=== PATIENT | male | born 1990 | race Caucasian/White ===

== ENCOUNTER 2018-02-09 19:02 | Inpatient (IN) ==
[2018-02-09] MEDS ORDERED: *HR* LORazepam 1 MG TABLET PO ONE (19:08)
--- NOTE | 2018-02-09 19:23 | Emergency Department Note ---
Disposition Clinical Impression: Substance abuse Disposition: Still a Patient General Adult HPI - General Stated complaint: SI Time Seen by Provider: 02/09/18 19:08 Nursing Notes Reviewed: Yes Vital Signs Reviewed: Yes - History of Present Illness HPI Narrative: Attestation note: Patient was seen with the emergency medicine resident/nurse practitioner/physician music library assistant/transitional resident/medical student: Dr. TJ MINOR I have personally performed a face to face evaluation on this patient. I have reviewed and agree with history and physical examination patient management and disposition. Briefly the salient points of the case are as follows: 28-year-old male by EMS for hallucinations and suicidal ideations. Patient has history of methamphetamine abuse by intravenous route. He stated was several days ago he appears to be agitated intermittently vacillating between admitting to suicidal ideations and then denying them since he seeing things. He seems agitated and animated. Family called in with concerns of him being flight risk and that he needs mental health evaluation. He does appear to have appears to be fresh track sofia on his right upper extremity. He is tachycardic. Patient will get an EKG patient will undergo medical clearance is physical examination is otherwise benign. Patient is can be given 2 mg of oral Ativan and then be evaluated by mental health service for disposition. Disposition pending - Related Data Previous Rx's Medication Instructions Recorded FLUoxetine HCl [Fluoxetine HCl] 10 mg PO DAILY #10 capsule 02/06/18 Ibuprofen 800 mg PO TID PRN #30 tablet 02/06/18 LORazepam [Ativan] 1 mg PO QID PRN 10 Days #40 tablet 02/06/18 Quetiapine Fumarate [Seroquel] 25 mg PO BID #20 tablet 02/06/18 traZODone [TraZODone] 50 mg PO HS #10 tablet 02/06/18 Allergies Allergy/AdvReac Type Severity Reaction Status Date / Time No Known Allergies Allergy Verified 08/24/17 15:54 Past Medical History - Past Medical History Medical history: Reports: no medical history Psychiatric history: Reports: anxiety, depression - Social History Smoking Status: Current every day smoker Smokeless Tobacco Status: No Alcohol use: Reports: none Drug use: Reports: marijuana
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
[2018-02-09 19:39] LABS: Basophils % 0.1 %; Hematocrit 43.4 % (37.5-50.1); Hemoglobin 15.6 g/dL (12.9-16.9); Immature Granulocytes % 0.3 % (0-4); Lymphocytes # 2.4 K/mcL (0.6-4.6); Mean Corpuscular HGB Conc 35.9 g/dL (31.6-35.5); Mean Corpuscular Hemoglobin 32.4 pg (28.0-33.3); Mean Corpuscular Volume 90.2 fL (83.0-100.0); Mean Platelet Volume 10.3 fL (9.4-12.4); Monocytes # 0.7 K/mcL (0.0-1.3); Monocytes % 6.8 %; Neutrophils # 6.5 K/mcL (1.6-8.9); Platelet Count 322 K/mcL (140-400); Red Blood Count 4.81 M/mcL (4.19-5.50); Red Cell Distribution Width 12.1 % (11.5-14.5); Segmented Neutrophils % 67.8 %
[2018-02-09 19:52] LABS: Acetaminophen < 10 mcg/mL (10-20); BUN/Creatinine Ratio 32 (6-26); Blood Urea Nitrogen 21 mg/dL (6-20); Calcium 10.3 mg/dL (8.6-10.3); Carbon Dioxide 27 mEq/L (23-29); Chloride 96 mEq/L (98-107); Ethanol < 10 mg/dL (Less than 10); Glucose 131 mg/dL (70-105); Osmolality,Calculated 287 (280-300); Potassium 3.9 mEq/L (3.5-5.1); Salicylate < 2.5 mg/dL (15.0-30.0); Sodium 136 mEq/L (136-145); eGFR For Non-African Americans > 60 (> 60)
[2018-02-09 20:07] LABS: Bilirubin,Urine Small (Negative); Blood,Urine Negative (Negative); Clarity,Urine Clear (Clear); Color,Urine Dark Yellow (Yellow); Glucose,Urine (UA) Normal (Normal); Ketones,Urine >=160 mg/dL (Negative); Leukocyte Esterase,Urine Negative (Negative); Nitrite,Urine Negative (Negative); Protein,Urine 30 mg/dL (Neg-Trace); Specific Gravity,Urine 1.029 (1.010-1.025); Urobilinogen,Urine Normal (Normal)
[2018-02-09 20:09] LABS: Bacteria,Urine None Seen per hpf (None-Few); Hyaline Casts,Urine None Seen per lpf (None-Few); RBC,Urine 0-3 per hpf (0-3); Squamous Epithelial Cell,Urine Many per lpf (None-Few); WBC,Urine 0-3 per hpf (0-3)
[2018-02-09 20:15] LABS: Amphetamine Screen,Urine Positive ng/mL (Cutoff=1000); Barbiturate Screen,Urine Negative ng/mL (Cutoff=200); Benzodiazepines Screen,Urine Negative ng/mL (Cutoff=200); Cannabinoid Screen,Urine Positive ng/mL (Cutoff = 50); Cocaine Screen,Urine Negative ng/mL (Cutoff= 300); Opiate Screen,Urine Negative ng/mL (Cutoff=300); Phencyclidine Screen,Urine Negative ng/mL (Cutoff=25)
--- NOTE | 2018-02-09 20:36 | Emergency Department Note ---
Disposition Clinical Impression: Substance abuse, Suicidal ideation Disposition: Still a Patient Referrals: NONE,PCP [Primary Care Provider] - Forms: ED Satisfaction Letter General Adult HPI - General Chief complaint: ED Psychiatric Symptoms Stated complaint: SI Time Seen by Provider: 02/09/18 19:08 Source: patient, family, EMS Limitations: other - History of Present Illness Pain Scale: 0 - Related Data Previous Rx's Medication Instructions Recorded FLUoxetine HCl [Fluoxetine HCl] 10 mg PO DAILY #10 capsule 02/06/18 Ibuprofen 800 mg PO TID PRN #30 tablet 02/06/18 LORazepam [Ativan] 1 mg PO QID PRN 10 Days #40 tablet 02/06/18 Quetiapine Fumarate [Seroquel] 25 mg PO BID #20 tablet 02/06/18 traZODone [TraZODone] 50 mg PO HS #10 tablet 02/06/18 Allergies Allergy/AdvReac Type Severity Reaction Status Date / Time No Known Allergies Allergy Verified 08/24/17 15:54 Past Medical History - Past Medical History Medical history: Reports: no medical history Psychiatric history: Reports: anxiety, depression - Social History Smoking Status: Current every day smoker Smokeless Tobacco Status: No Alcohol use: Reports: none Drug use: Reports: marijuana, methamphetamine, IV Drug Use Physical Exam - General Limitations: other General appearance: alert, in no apparent distress Course Vital Signs Temperature 98.8 F 02/09/18 19:31 Pulse Rate 89 02/09/18 19:31 Respiratory Rate 17 02/09/18 19:31 Blood Pressure 147/97 02/09/18 19:31 O2 Sat by Pulse Oximetry 100 02/09/18 19:31 Temperature 98.8 F 02/09/18 19:31 Pulse Rate 89 02/09/18 19:42 Respiratory Rate 16 02/09/18 19:42 Blood Pressure 147/98 02/09/18 19:42 O2 Sat by Pulse Oximetry 100 02/09/18 19:42 Oxygen Delivery Oxygen Delivery Room Air Medical Decision Making - Lab Data Result diagrams: 02/09/18 19:23 02/09/18 19:23 Lab Results 02/09/18 02/09/18 02/09/18 Range/Units 19:23 19:23 19:50 WBC 9.6 (4.3-11.1) K/mcL RBC 4.81 (4.19-5.50) M/mcL Hgb 15.6 (12.9-16.9) g/dL Hct 43.4 (37.5-50.1) % MCV 90.2 (83.0-100.0) fL MCH 32.4 (28.0-33.3) pg MCHC 35.9 H (31.6-35.5) g/dL RDW 12.1 (11.5-14.5) % Plt Count 322 (140-400) K/mcL MPV 10.3 (9.4-12.4) fL Immature Gran % 0.3 (0-4) % Seg Neutrophils % 67.8 % Lymphocytes % 25.0 % Monocytes % 6.8 % Eosinophils % 0.0 % Basophils % 0.1 % Neutrophils # 6.5 (1.6-8.9) K/mcL Lymphocytes # 2.4 (0.6-4.6) K/mcL Monocytes # 0.7 (0.0-1.3) K/mcL Eosinophils # 0.0 (0.0-0.6) K/mcL Basophils # 0.0 (0.0-0.2) K/mcL Sodium 136 (136-145) mEq/L Potassium 3.9 (3.5-5.1) mEq/L Chloride 96 L (98-107) mEq/L Carbon Dioxide 27 (23-29) mEq/L BUN 21 H (6-20) mg/dL Creatinine 0.66 L (0.70-1.30) mg/dL Est GFR ( Amer) > 60 (> 60) Est GFR (Non-Af Amer) > 60 (> 60) BUN/Creatinine Ratio 32 H (6-26) Glucose 131 H (70-105) mg/dL Calculated Osmolality 287 (280-300) Calcium 10.3 (8.6-10.3) mg/dL Urine Color Dark Yellow (Yellow) Urine Clarity Clear (Clear) Urine pH 6.0 (5.0-8.0) pH Units Ur Specific [place] 1.029 H (1.010-1.025) Urine Protein 30 H (Neg-Trace) mg/dL Urine Glucose (UA) Normal (Normal) mg/dL Urine Ketones >=160 H (Negative) mg/dL Urine Blood Negative (Negative) Urine Nitrite Negative (Negative) Urine Bilirubin Small H (Negative) Urine Urobilinogen Normal (Normal) mg/dL Ur Leukocyte Esterase Negative (Negative) Urine Microscopic RBC 0-3 (0-3) per hpf Urine Microscopic WBC 0-3 (0-3) per hpf Ur Squamous Epith Cells Many H (None-Few) per lpf Urine Bacteria None Seen (None-Few) per hpf Hyaline Casts None Seen (None-Few) per lpf Salicylates < 2.5 L (15.0-30.0) mg/dL Urine Opiates Screen (Wtyhws=550) ng/mL Acetaminophen < 10 L (10-20) mcg/mL Ur Barbiturates Screen (Cbygxp=338) ng/mL Ur Phencyclidine Scrn (Cutoff=25) ng/mL Ur Amphetamines Screen (Rlptcl=0273) ng/mL U Benzodiazepines Scrn (Stavmb=513) ng/mL Urine Cocaine Screen (Cutoff= 300) ng/mL U Marijuana (THC) Screen (Cutoff = 50) ng/mL Ur Drug Screen Interp Ethyl Alcohol < 10 (Less than 10) mg/dL 02/09/18 Range/Units 19:50 WBC (4.3-11.1) K/mcL RBC (4.19-5.50) M/mcL Hgb (12.9-16.9) g/dL Hct (37.5-50.1) % MCV (83.0-100.0) fL MCH (28.0-33.3) pg MCHC (31.6-35.5) g/dL RDW (11.5-14.5) % Plt Count (140-400) K/mcL MPV (9.4-12.4) fL Immature Gran % (0-4) % Seg Neutrophils % % Lymphocytes % % Monocytes % % Eosinophils % % Basophils % % Neutrophils # (1.6-8.9) K/mcL Lymphocytes # (0.6-4.6) K/mcL Monocytes # (0.0-1.3) K/mcL Eosinophils # (0.0-0.6) K/mcL Basophils # (0.0-0.2) K/mcL Sodium (136-145) mEq/L Potassium (3.5-5.1) mEq/L Chloride (98-107) mEq/L Carbon Dioxide (23-29) mEq/L BUN (6-20) mg/dL Creatinine (0.70-1.30) mg/dL Est GFR ( Amer) (> 60) Est GFR (Non-Af Amer) (> 60) BUN/Creatinine Ratio (6-26) Glucose (70-105) mg/dL Calculated Osmolality (280-300) Calcium (8.6-10.3) mg/dL Urine Color (Yellow) Urine Clarity (Clear) Urine pH (5.0-8.0) pH Units Ur Specific [place] (1.010-1.025) Urine Protein (Neg-Trace) mg/dL Urine Glucose (UA) (Normal) mg/dL Urine Ketones (Negative) mg/dL Urine Blood (Negative) Urine Nitrite (Negative) Urine Bilirubin (Negative) Urine Urobilinogen (Normal) mg/dL Ur Leukocyte Esterase (Negative) Urine Microscopic RBC (0-3) per hpf Urine Microscopic WBC (0-3) per hpf Ur Squamous Epith Cells (None-Few) per lpf Urine Bacteria (None-Few) per hpf Hyaline Casts (None-Few) per lpf Salicylates (15.0-30.0) mg/dL Urine Opiates Screen Negative (Laipsw=390) ng/mL Acetaminophen (10-20) mcg/mL Ur Barbiturates Screen Negative (Wgqizc=051) ng/mL Ur Phencyclidine Scrn Negative (Cutoff=25) ng/mL Ur Amphetamines Screen Positive H (Smkyun=8814) ng/mL U Benzodiazepines Scrn Negative (Numlnj=045) ng/mL Urine Cocaine Screen Negative (Cutoff= 300) ng/mL U Marijuana (THC) Screen Positive H (Cutoff = 50) ng/mL Ur Drug Screen Interp See Below Ethyl Alcohol (Less than 10) mg/dL Attestation Statement - Attestation Attestation: Care assumed from Dr. Cota at 20:30 pending behavioral consultation. Medical clearance labs reviewed by me 21:51: The patient required intramuscular Zyprexa due to aggressive behavior. Patient was yelling and cursing at staff. He is now calm at the time of reevaluation. Care will be endorsed to Dr. Monroe at this time pending completion of behavioral consultation.
[2018-02-09] MEDS ORDERED: OLANZapine 10 MG VIAL IM ONE (20:56)
--- NOTE | 2018-02-09 22:09 | Emergency Department Note ---
Disposition Clinical Impression: Substance abuse, Suicidal ideation Disposition: Admitted As Inpatient Condition: Good Referrals: NONE,PCP [Primary Care Provider] - Forms: ED Satisfaction Letter Time of Disposition: 23:02 General Adult HPI - General Chief complaint: ED Psychiatric Symptoms Stated complaint: SI Time Seen by Provider: 02/09/18 19:08 Source: patient, family, EMS Limitations: other - History of Present Illness Pain Scale: 0 - Related Data Previous Rx's Medication Instructions Recorded FLUoxetine HCl [Fluoxetine HCl] 10 mg PO DAILY #10 capsule 02/06/18 Ibuprofen 800 mg PO TID PRN #30 tablet 02/06/18 LORazepam [Ativan] 1 mg PO QID PRN 10 Days #40 tablet 02/06/18 Quetiapine Fumarate [Seroquel] 25 mg PO BID #20 tablet 02/06/18 traZODone [TraZODone] 50 mg PO HS #10 tablet 02/06/18 Allergies Allergy/AdvReac Type Severity Reaction Status Date / Time No Known Allergies Allergy Verified 08/24/17 15:54 Past Medical History - Past Medical History Medical history: Reports: no medical history Psychiatric history: Reports: anxiety, depression - Social History Smoking Status: Current every day smoker Smokeless Tobacco Status: No Alcohol use: Reports: none Drug use: Reports: marijuana, methamphetamine, IV Drug Use Physical Exam - General Limitations: other General appearance: alert, in no apparent distress Course Course Narrative: Patient signed out to me at shift change from Dr. Lucio after being signed out to him from Dr. Cota and Dr. Roberts. Patient presented with suicidal ideation. He has been medically cleared for psychiatric evaluation. [address] psychiatry department and has been consulted and evaluated patient and discussed shift change we are currently awaiting psychiatric recommendations and disposition. Patient being admitted to the [address] psychiatric unit. Vital Signs Temperature 98.8 F 02/09/18 19:31 Pulse Rate 89 02/09/18 19:31 Respiratory Rate 17 02/09/18 19:31 Blood Pressure 147/97 02/09/18 19:31 O2 Sat by Pulse Oximetry 100 02/09/18 19:31 Temperature 98.8 F 02/09/18 19:31 Pulse Rate 89 02/09/18 19:42 Respiratory Rate 16 02/09/18 19:42 Blood Pressure 147/98 02/09/18 19:42 O2 Sat by Pulse Oximetry 100 02/09/18 19:42 Oxygen Delivery Oxygen Delivery Room Air Medical Decision Making - Lab Data Result diagrams: 02/09/18 19:23 02/09/18 19:23 Lab Results 02/09/18 02/09/18 02/09/18 Range/Units 19:23 19:23 19:50 WBC 9.6 (4.3-11.1) K/mcL RBC 4.81 (4.19-5.50) M/mcL Hgb 15.6 (12.9-16.9) g/dL Hct 43.4 (37.5-50.1) % MCV 90.2 (83.0-100.0) fL MCH 32.4 (28.0-33.3) pg MCHC 35.9 H (31.6-35.5) g/dL RDW 12.1 (11.5-14.5) % Plt Count 322 (140-400) K/mcL MPV 10.3 (9.4-12.4) fL Immature Gran % 0.3 (0-4) % Seg Neutrophils % 67.8 % Lymphocytes % 25.0 % Monocytes % 6.8 % Eosinophils % 0.0 % Basophils % 0.1 % Neutrophils # 6.5 (1.6-8.9) K/mcL Lymphocytes # 2.4 (0.6-4.6) K/mcL Monocytes # 0.7 (0.0-1.3) K/mcL Eosinophils # 0.0 (0.0-0.6) K/mcL Basophils # 0.0 (0.0-0.2) K/mcL Sodium 136 (136-145) mEq/L Potassium 3.9 (3.5-5.1) mEq/L Chloride 96 L (98-107) mEq/L Carbon Dioxide 27 (23-29) mEq/L BUN 21 H (6-20) mg/dL Creatinine 0.66 L (0.70-1.30) mg/dL Est GFR ( Amer) > 60 (> 60) Est GFR (Non-Af Amer) > 60 (> 60) BUN/Creatinine Ratio 32 H (6-26) Glucose 131 H (70-105) mg/dL Calculated Osmolality 287 (280-300) Calcium 10.3 (8.6-10.3) mg/dL Urine Color Dark Yellow (Yellow) Urine Clarity Clear (Clear) Urine pH 6.0 (5.0-8.0) pH Units Ur Specific [place] 1.029 H (1.010-1.025) Urine Protein 30 H (Neg-Trace) mg/dL Urine Glucose (UA) Normal (Normal) mg/dL Urine Ketones >=160 H (Negative) mg/dL Urine Blood Negative (Negative) Urine Nitrite Negative (Negative) Urine Bilirubin Small H (Negative) Urine Urobilinogen Normal (Normal) mg/dL Ur Leukocyte Esterase Negative (Negative) Urine Microscopic RBC 0-3 (0-3) per hpf Urine Microscopic WBC 0-3 (0-3) per hpf Ur Squamous Epith Cells Many H (None-Few) per lpf Urine Bacteria None Seen (None-Few) per hpf Hyaline Casts None Seen (None-Few) per lpf Salicylates < 2.5 L (15.0-30.0) mg/dL Urine Opiates Screen (Kawbke=317) ng/mL Acetaminophen < 10 L (10-20) mcg/mL Ur Barbiturates Screen (Nkbjpl=763) ng/mL Ur Phencyclidine Scrn (Cutoff=25) ng/mL Ur Amphetamines Screen (Fiifek=2028) ng/mL U Benzodiazepines Scrn (Modcfs=839) ng/mL Urine Cocaine Screen (Cutoff= 300) ng/mL U Marijuana (THC) Screen (Cutoff = 50) ng/mL Ur Drug Screen Interp Ethyl Alcohol < 10 (Less than 10) mg/dL 02/09/18 Range/Units 19:50 WBC (4.3-11.1) K/mcL RBC (4.19-5.50) M/mcL Hgb (12.9-16.9) g/dL Hct (37.5-50.1) % MCV (83.0-100.0) fL MCH (28.0-33.3) pg MCHC (31.6-35.5) g/dL RDW (11.5-14.5) % Plt Count (140-400) K/mcL MPV (9.4-12.4) fL Immature Gran % (0-4) % Seg Neutrophils % % Lymphocytes % % Monocytes % % Eosinophils % % Basophils % % Neutrophils # (1.6-8.9) K/mcL Lymphocytes # (0.6-4.6) K/mcL Monocytes # (0.0-1.3) K/mcL Eosinophils # (0.0-0.6) K/mcL Basophils # (0.0-0.2) K/mcL Sodium (136-145) mEq/L Potassium (3.5-5.1) mEq/L Chloride (98-107) mEq/L Carbon Dioxide (23-29) mEq/L BUN (6-20) mg/dL Creatinine (0.70-1.30) mg/dL Est GFR ( Amer) (> 60) Est GFR (Non-Af Amer) (> 60) BUN/Creatinine Ratio (6-26) Glucose (70-105) mg/dL Calculated Osmolality (280-300) Calcium (8.6-10.3) mg/dL Urine Color (Yellow) Urine Clarity (Clear) Urine pH (5.0-8.0) pH Units Ur Specific [place] (1.010-1.025) Urine Protein (Neg-Trace) mg/dL Urine Glucose (UA) (Normal) mg/dL Urine Ketones (Negative) mg/dL Urine Blood (Negative) Urine Nitrite (Negative) Urine Bilirubin (Negative) Urine Urobilinogen (Normal) mg/dL Ur Leukocyte Esterase (Negative) Urine Microscopic RBC (0-3) per hpf Urine Microscopic WBC (0-3) per hpf Ur Squamous Epith Cells (None-Few) per lpf Urine Bacteria (None-Few) per hpf Hyaline Casts (None-Few) per lpf Salicylates (15.0-30.0) mg/dL Urine Opiates Screen Negative (Udlclx=034) ng/mL Acetaminophen (10-20) mcg/mL Ur Barbiturates Screen Negative (Ugvfcc=578) ng/mL Ur Phencyclidine Scrn Negative (Cutoff=25) ng/mL Ur Amphetamines Screen Positive H (Eciafk=5348) ng/mL U Benzodiazepines Scrn Negative (Bgplgy=349) ng/mL Urine Cocaine Screen Negative (Cutoff= 300) ng/mL U Marijuana (THC) Screen Positive H (Cutoff = 50) ng/mL Ur Drug Screen Interp See Below Ethyl Alcohol (Less than 10) mg/dL
[2018-02-10] MEDS ORDERED: *HR* LORazepam 2 MG/ML VIAL IM PRN (01:42)
[2018-02-10] MEDS ORDERED: MOM Conc 10 ML UD.LIQ PO PRN (01:42)
[2018-02-10] MEDS ORDERED: traZODone 50 MG TABLET PO PRN (01:42)
[2018-02-10] MEDS ORDERED: Haloperidol Lactate 5 MG/ML VIAL IM PRN (01:42)
[2018-02-10] MEDS ORDERED: Mag Hydrox/Al Hydrox/Simeth 30 ML UDC PO PRN (01:42)
[2018-02-10] MEDS ORDERED: Ibuprofen 400 MG TABLET PO PRN (01:42)
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
[2018-02-10] MEDS: risperiDONE 1 MG TABLET PO SCH ×2 (10:12→21:19)
[2018-02-10] MEDS: hydrOXYzine pamoate 25 MG CAPSULE PO PRN ×2 (14:26→18:38)
[2018-02-11] MEDS: risperiDONE 1 MG TABLET PO SCH ×2 (09:05→20:52)
[2018-02-11] MEDS: *HR* LORazepam 1 MG TABLET PO PRN ×2 (11:10→17:16)
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
[2018-02-12] MEDS: hydrOXYzine pamoate 25 MG CAPSULE PO PRN ×2 (04:41→08:15)
[2018-02-12] MEDS: risperiDONE 1 MG TABLET PO SCH (08:15)
[2018-02-12 09:21] VITALS: BP 124/80
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
--- NOTE | 2018-02-15 18:28 | Electrocardiograph Report ---
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
== END 2018-02-12 12:10 | disposition home or self-care (01) | DRG 751 ==
LOC: EMEROOARM 19:02 → 1ANU 02-10 01:38
PROVIDERS: ADMIT Psychiatry & Neurology Psychiatry; ATTEND Psychiatry & Neurology Psychiatry

== ENCOUNTER 2018-04-18 05:38 | Inpatient (IN) ==
[2018-04-18] MEDS ORDERED: *HR* LORazepam 2 MG/ML VIAL IVP ONE ×2 (05:50→06:54)
[2018-04-18] MEDS ORDERED: Tdap (Boostrix) Vaccine 0.5 ML SYRINGE IM ONE (05:50)
--- NOTE | 2018-04-18 06:00 | Emergency Department Note ---
Disposition Clinical Impression: Methamphetamine abuse Extensor tendon laceration of left hand with open wound Qualifiers: Encounter type: initial encounter Qualified Code(s): S66.822A - Laceration of other specified muscles, fascia and tendons at wrist and hand level, left hand, initial encounter; S61.402A - Unspecified open wound of left hand, initial encounter Disposition: Admitted As Inpatient Condition: Fair Referrals: NONE,PCP [Primary Care Provider] - Forms: ED Satisfaction Letter Time of Disposition: 07:26 Wound/Laceration HPI - General Chief Complaint: ED Wound/Laceration Stated Complaint: hand lac Time Seen by Provider: 04/18/18 05:49 Source: patient, EMS Limitations: no limitations Nursing Notes Reviewed: Yes Vital Signs Reviewed: Yes - History of Present Illness HPI Narrative: 28-year-old male presents from scene by EMS for evaluation of a cut to his left hand. Patient admits to recently smoking meth. He denies any pain in his hand. He does not know how he cut his hand. His only concern at this time is smoking cigarettes and obtaining more meth. Review of systems not obtainable as patient is not able to answer straight for question secondary to his intoxication for methamphetamine. - Related Data Home Medications Medication Instructions Recorded Confirmed Benztropine Mesylate 1 mg PO 04/18/18 04/18/18 FLUoxetine HCl [Prozac] 04/18/18 Loxapine Succinate [Loxapine] 04/18/18 risperiDONE [Risperidone] 04/18/18 Previous Rx's Medication Instructions Recorded traZODone [TraZODone] 50 mg PO HS #10 tablet 02/12/18 Allergies Allergy/AdvReac Type Severity Reaction Status Date / Time No Known Allergies Allergy Verified 08/24/17 15:54 All systems ED: reviewed and negative except as stated. Review of Systems: As Per HPI Past Medical History - Past Medical History Medical history: Reports: no medical history Surgical history: Reports: no surgical history Psychiatric history: Reports: other - Social History Smoking Status: Current every day smoker Smokeless Tobacco Status: No Alcohol use: Reports: none Drug use: Reports: marijuana, methamphetamine, IV Drug Use Physical Exam Vital Signs Reviewed General: Patient is alert, oriented to self, and in no acute distress. Head: atraumatic, normocephalic Eye: normal appearance, PERRL, EOMI, no scleral icterus, no conjunctival injection ENT: mucous membranes moist, normal external ear exam. Poor dentition. Neck: normal inspection, trachea midline, full ROM Chest: normal inspection, symmetric chest rise Respiratory: Good respiratory effort. Bilateral breath sounds are clear without wheezing, crackles, or rhonchi. Cardiovascular: Regular rate and rhythm. No clicks, rubs, gallops, or murmors. Normal heart sounds. Abdomen: Bowel sounds present normoactive. Abdomen is soft, nondistended, and nontender. No guarding or rebound. Musculoskeletal: Curvilinear 5 cm laceration over the dorsum of the patient's left hand beginning just distal to the wrist. Tendon is visible from the wound. Patient is unable to extend his left index and middle finger. He does have full extension of the left thumb, ring, pinky as well as left wrist. Skin: warm, dry. Neuro: GCS 15. No focal neurologic deficits observed. Psych: Patient's affect is appropriate for situation. - General Limitations: no limitations General appearance: alert, in no apparent distress, appears intoxicated Course Course Narrative: Based on physical exam, it appears the laceration occurred with the patient's left wrist in flexion. This lines the lacerated tendons of the extensor digitorum with the laceration of the skin. The wound appears clean. I discussed the patient with on-call orthopedics, Dr. Patel. He recommends outpatient follow-up, loose suturing, and splinted in extension. I am concerned the patient's substance abuse, lack of concern, and high risk of lack of follow-up. Dr. Patel is agreeable to me calling hand specialist, Dr. Pal. I discussed the patient with Dr. Pal. Discussed my concern over the patient's social situation and high likelihood of noncompliance for follow-up. He is agreeable to see the patient on an inpatient with admission to the hospitalist. Consult placed. 2 g Ancef started. Tetanus booster ordered. I loosely suture the laceration and placed the patient in a volar wrist splint with the wrist and finger extension. X-ray left hand is unremarkable. I discussed the above with the admitting hospitalist, Dr. Jett. He is agreeable to accept the patient with orthopod following. He is where the patient's substance abuse. Hand X-Ray 04/18/18 05:50 IMPRESSION: No definite fracture or radiopaque foreign body. D/ / Mane Cutler MD / Mane Cutler MD Interpreting Provider: Mane Cutler MD Vital Signs Temperature 99.7 F H 04/18/18 05:46 Pulse Rate 98 04/18/18 05:46 Respiratory Rate 20 04/18/18 05:46 Blood Pressure 150/118 04/18/18 05:46 O2 Sat by Pulse Oximetry 98 04/18/18 05:46 Temperature 99.7 F H 04/18/18 05:46 Pulse Rate 98 04/18/18 05:46 Respiratory Rate 20 04/18/18 05:46 Blood Pressure 150/118 04/18/18 05:46 O2 Sat by Pulse Oximetry 04/18/18 05:46 Oxygen Delivery Oxygen Delivery Room Air Procedures - Laceration Laceration 1 Site: upper extremity Side (If applicable): left Size (cm): 5 Description: clean, other (curvilinear) Depth: involves tendon Local Anesthetic: lidocaine 1%, with epi Amount of Anesthesia Used (mL): 3 Pre-repair: wound explored, irrigated extensively Skin layer closed with: nylon Size: 4-0 Number of sutures/jackie: 3 Technique: simple, interrupted - Orthopedic Splinting/Casting Injury #1 Side: left Upper Extremity Injury Location: wrist, hand Upper Extremity Immobilizer: volar splint
[2018-04-18] MEDS ORDERED: *HR* LORazepam 2 MG/ML VIAL IM ONE (06:04)
[2018-04-18] MEDS ORDERED: Lidocaine 1% 20 ML MDV INFILT STA (06:19)
--- NOTE | 2018-04-18 07:59 | Emergency Department Note ---
Disposition Clinical Impression: Methamphetamine abuse Extensor tendon laceration of left hand with open wound Qualifiers: Encounter type: initial encounter Qualified Code(s): S66.822A - Laceration of other specified muscles, fascia and tendons at wrist and hand level, left hand, initial encounter Disposition: Admitted As Inpatient Condition: Fair General Adult HPI - General Chief complaint: ED Wound/Laceration Stated complaint: hand lac Time Seen by Provider: 04/18/18 05:49 Source: patient, EMS Limitations: no limitations Nursing Notes Reviewed: Yes Vital Signs Reviewed: Yes - History of Present Illness Pain Scale: 4 - Related Data Home Medications Medication Instructions Recorded Confirmed Benztropine Mesylate 1 mg PO 04/18/18 FLUoxetine HCl [Prozac] 04/18/18 Loxapine Succinate [Loxapine] 04/18/18 risperiDONE [Risperidone] 04/18/18 Previous Rx's Medication Instructions Recorded traZODone [TraZODone] 50 mg PO HS #10 tablet 02/12/18 Allergies Allergy/AdvReac Type Severity Reaction Status Date / Time No Known Allergies Allergy Verified 08/24/17 15:54 Past Medical History - Past Medical History Medical history: Reports: no medical history Surgical history: Reports: no surgical history Psychiatric history: Reports: other - Social History Smoking Status: Current every day smoker Smokeless Tobacco Status: No Alcohol use: Reports: none Drug use: Reports: marijuana, methamphetamine, IV Drug Use Physical Exam - General Limitations: no limitations General appearance: alert, in no apparent distress, appears intoxicated Course Vital Signs Temperature 99.7 F H 04/18/18 05:46 Pulse Rate 98 04/18/18 05:46 Respiratory Rate 20 04/18/18 05:46 Blood Pressure 150/118 04/18/18 05:46 O2 Sat by Pulse Oximetry 98 04/18/18 05:46 Temperature 99.7 F H 04/18/18 05:46 Pulse Rate 89 04/18/18 07:26 Respiratory Rate 18 04/18/18 07:26 Blood Pressure 142/79 04/18/18 07:26 O2 Sat by Pulse Oximetry 98 04/18/18 07:26 Oxygen Delivery Oxygen Delivery Room Air Medical Decision Making - Radiology Data Radiology results reviewed: Yes I reviewed the patient's radiology results. Hand X-Ray 04/18/18 05:50 IMPRESSION: No definite fracture or radiopaque foreign body. D/ / Mane Cutler MD / Mane Cutler MD Interpreting Provider: Mane Cutler MD Attestation Statement - Attestation Attestation: I, Dorian Monroe MD, personally evaluated this patient and discussed their management with the resident physician. I reviewed the resident's note and agree with the documented findings, medical decision making, and plan of care. 28-year-old male presents to the emergency department with a complaint of a laceration to the back of the left hand. Patient unsure how the laceration occurred. Patient admits to using methamphetamine and is very intoxicated. Patient is somewhat uncooperative. No other obvious injury or complaint. On examination patient is a well-developed well-nourished male in no acute distress. He has a curvilinear laceration to the dorsum of the left hand with completely lacerated tendons protruding from the wound. He has loss of extension of the left index and middle fingers. Sensation is intact in all fingertips. Normal capillary refill. X-ray showed no definite fracture or foreign body. The wound was loosely sutured by Dr. Bailey. I was present for the entire procedure. A splint was applied. Dr. Bailey discussed with the orthopedist shirt ironer supervisor, Dr. Patel, who recommended splinting and outpatient follow-up tomorrow however we felt the patient would not follow up due to his substance abuse. He was agreeable with us consulted during the hand surgeon as well. Dr. Farfan was then consulted and agreed to see the patient has a consult in the hospital. The hospitalist, Dr. Jett, was consulted and accepted admission of the patient.
--- NOTE | 2018-04-18 09:01 | Orthopedic Consult Note ---
Date of Encounter: 04/18/18 Time of Encounter: 08:30 Assessment and Plan (1) Extensor tendon laceration of left hand with open wound Current Visit: Yes Status: Acute Extensor tendon laceration will require surgical repair. Discussed with Dr. Farfan who plans to proceed with left hand extensor tendon repair with wound closure today. I discussed the procedure with the patient and at this time he is agreeable to surgery. Consent was signed. At the time he was alert and oriented to name, date, and place and expressed understanding of the procedure. NPO until surgery pain control per primary team. leave splint in place until surgery. keep LUE elevated. No motion of fingers or wrist to prevent retraction of tendons. Qualifiers: Encounter type: initial encounter Qualified Code(s): S66.822A - Laceration of other specified muscles, fascia and tendons at wrist and hand level, left hand, initial encounter; S61.402A - Unspecified open wound of left hand, initial encounter History of Present Illness Chief complaint: left hand pain HPI: Mr. Villasenor is a 28 year old male who was brought to the ER this morning by EMS for left hand laceration. Patient admittedly under the influence with recent methamphetamine use. Patient states he does not remember how he cut his hand or what he was doing at the time but states he was probably doing something stupid. He states his hand currently does hurt but denies any numbness to fingers. States he is unable to move his fingers. Past Med Surg Social Fam HX - Past Medical History Medical history: no medical history Additional medical history: IV drug user, marijuana use, smoker Psychiatric history: other - Past Surgical History Surgical History: no surgical history - Social History Smoking Status: Current every day smoker Smokeless Tobacco Status: No Alcohol use: none Drug use: marijuana, methamphetamine, IV Drug Use Medications and Allergies traZODone [TraZODone] 50 mg PO HS #10 tablet 02/12/18 [Rx] Benztropine Mesylate 1 mg PO 04/18/18 [History] FLUoxetine HCl [Prozac] 20 mg PO DAILY 04/18/18 [History] Loxapine Succinate [Loxapine] 10 mg PO DAILY 04/18/18 [History] risperiDONE [Risperidone] 1 mg PO BID 04/18/18 [History] Allergy/AdvReac Type Severity Reaction Status Date / Time No Known Allergies Allergy Verified 08/24/17 15:54 ROS unobtainable: due to mental status All Systems Reviewed: The remainder of the systems were reviewed and are negative Physical Exam - Constitutional Vitals: Temp Pulse Resp BP Pulse Ox 98.5 F 96 20 163/96 96 04/18/18 08:20 04/18/18 08:20 04/18/18 08:20 04/18/18 08:20 04/18/18 08:20 General appearance IM: A&O X 3 (could answer full name, , place and time appropriately although speech somewhat slurred), no acute distress - Wrist & Hand left Location of pain: dorsal hand (There is a roughly 4cm curved laceration to dorsal hand with end at wrist and directed distally [address] with no active bleeding. no erythema. wrist held flexed patient unable to extend the wrist. full motion of thumb but patient unwilling to flex or extend fingers at all. brisk cap refill, NV intact) Results - Labs Labs: All other labs normal. - Diagnostic results Wrist/Hand x-ray: report reviewed Consult Discharge Plan - Plan Referrals: NONE,PCP [Primary Care Provider] - - Attending Attestation Case and plan of care discussed with supervising physician who was available for all aspects of care.
[2018-04-18] MEDS ORDERED: *HR* LORazepam 2 MG/ML VIAL ONE (11:14)
[2018-04-18] MEDS: *HR* LORazepam 2 MG/ML VIAL IM PRN ×2 (11:20→14:55)
[2018-04-18] MEDS ORDERED: OXYCODONE Oral CONC 10 MG/0.5 ML ORAL.SYG SL PRN ×3 (11:33→19:11)
--- NOTE | 2018-04-18 12:53 | Consult Note ---
Date of Encounter: 04/18/18 Time of Encounter: 12:30 Assessment & Recommendation (1) Acute psychosis Current visit: No Status: Acute (2) Substance abuse Current visit: No Status: Acute (3) Substance-induced psychotic disorder Current visit: No Status: Acute (4) Borderline intellectual functioning Current visit: No Status: Acute (5) Intellectual functioning disability Current visit: No Status: Acute History of Present Illness Requesting Physician: Petr Guerra Reason for consult: meth Withdrawal History of present illness: Mr. Villasenor is a 28 year old male who presents for methamphetamine use D/O. Pt was currently a/o to self only. Pt currently lacks capacity to makes decsions at this time will reassess in 24 hours Pt Noted he was doing "fine today." Pt stated that his appetite was "fine....." Pt stated that he slept "I dont know." last night. Pt noted his ap petite is "okay." Pt rated his depression a "0," on a scale of zero to ten with ten being the worst and zero being none. Pt rated his anxiety a "0," on the same scale. Pt denied any current thoughts to harm himself or anyone else. Pt noted he currently feels safe and comfortable on the unit. Pt denied any auditory or visual hallucinations. Pt noted significant methamphetamine use daily. Pt continues to withdrawal from methamphetamines, currently confused however can remain linear and appropriate at times. 1. Interval History. 2. Review current labs 3. Continue current medications 4. Supportive Therapy Provided 5. Pt had an opportunity to ask questions and address concerns 6. Pt encouraged to continue therapy group or individual. 7. Pt was in agreement with treatment plan. 8. The risks benefits and side effects of medications were discussed with the patient, including alternatives and no treatment. 9. Recommend haloperidol 5 mg PO or IM if refuse and lorazepam 2 mg PO or IM if refuse and benadryl 50 mg PO or IM if refuse for calm. CC: Petr Guerra Past Med Surg Social Fam HX - Past Medical History Medical history: no medical history - Past Psychiatric History Psychiatric history: Reports: other (methamphetamine use D/O) Family psychiatric history: Unknown Family History of Suicide: Unknown - Past Surgical History Surgical History: no surgical history - Social History Smoking Status: Current every day smoker Smokeless Tobacco Status: No Alcohol use: none Drug use: marijuana, methamphetamine, IV Drug Use Medications & Allergies traZODone [TraZODone] 50 mg PO HS #10 tablet 02/12/18 [Rx] Benztropine Mesylate 1 mg PO 04/18/18 [History] FLUoxetine HCl [Prozac] 20 mg PO DAILY 04/18/18 [History] Loxapine Succinate [Loxapine] 10 mg PO HS 04/18/18 [History] risperiDONE [Risperidone] 2 mg PO BID 04/18/18 [History] Allergy/AdvReac Type Severity Reaction Status Date / Time No Known Allergies Allergy Verified 08/24/17 15:54 Review of Systems Constitutional: Denies: fever, chills, weakness, weight change Eyes: Denies: eye pain, vision change Ears, Nose, Throat: Denies: ear pain, throat pain, dental pain, hearing loss, congestion Cardiovascular: Denies: chest pain, palpitations, dyspnea on exertion Respiratory: Denies: cough, dyspnea, wheezes Gastrointestinal: Denies: abdominal pain, nausea, vomiting, diarrhea, constipation Genitourinary male: Denies: urgency, dysuria, frequency, genital lesions Musculoskeletal: Denies: joint swelling, joint pain Integumentary: Denies: rash, lesions, pruritus Neurological: Denies: headache, weakness, numbness, memory loss Psychiatric: Reports: confusion Endocrine: Denies: fatigue, heat or cold intolerance Hematologic/Lymphatic: Denies: easy bruising, lymphadenopathy Allergic/Immunologic: Denies: urticaria, itchy eyes Psychiatry Exam - Constitutional Vitals: Temp Pulse Resp BP Pulse Ox 98.5 F 96 20 163/96 96 04/18/18 08:20 04/18/18 08:20 04/18/18 08:20 04/18/18 08:20 04/18/18 08:20 General appearance: age & developmentally appropriate, well-groomed, well- nourished - Musculoskeletal Gait: normal Station: relaxed Strength & Tone: normal for patient - Psychiatric Patient Orientation: Yes Person Level of alertness: Alert Behavior: agitated Psychomotor activity: Agitated Eye Contact: Maintains Eye Contact Mood Description: Angry Affect description: labile Speech Volume: Loud Speech pattern: spontaneous, disorganized, slurred, garbled, impoverished Language & Vocabulary: limited Thought Process: Disorganized Thought Content: No Suicidal ideation, No Homicidal ideation, No Overt delusions Perceptual Disturbances: No Auditory hallucinations, No Visual hallucinations Attention Span Ability: Unable to Sustain Attention Memory Description: Immediate Impaired, Remote Impaired Patient Reliability: Questionable Historian Fund of knowledge: Yes abstraction ability, Yes aware of current events Intelligence Estimate: Average Judgment: Poor Insight: Minimal Results - Impressions Impressions Hand X-Ray 04/18/18 05:50 IMPRESSION: No definite fracture or radiopaque foreign body. D/ / Mane Cutler MD / Mane Cutler MD Interpreting Provider: Mane Cutler MD Consult Discharge Plan - Plan Additional Instructions: Pt currently lacks capacity to make decisions. PT does not meet inpt psychia tric admssion criteria at this time. will continue to follow loosely Referrals: NONE,PCP [Primary Care Provider] -
--- NOTE | 2018-04-18 13:55 | Anesthesia Evaluation PreOp ---
Date of Encounter: 04/18/18 Time of Encounter: 15:57 - Past History Planned Operation: Left Hand Extensor Tendon Repair Cardiac History: Denies any Significant Hx Pulmonary History: Smoker (16 years) BENEFITS SPECIALIST History: Other (acute pychosis from substance induced psychotic disorder) Other Medical History: Denies Any Significant HX Anesthesia History: No Prior Anesthetic Complications, Past Anesthesia (T & A according to mother) Alcohol Use: none Drug use: marijuana, methamphetamine, IV Drug Use Medications and Allergies FLUoxetine HCl [Prozac] 20 mg PO DAILY 04/18/18 [History] Loxapine Succinate [Loxapine] 10 mg PO HS 04/18/18 [History] risperiDONE [Risperidone] 2 mg PO BID 04/18/18 [History] traZODone [TraZODone] 50 mg PO HS PRN 04/18/18 [History] Allergy/AdvReac Type Severity Reaction Status Date / Time No Known Allergies Allergy Verified 08/24/17 15:54 - Meds/Allergy Pre-op Review Medications Reviewed: Yes Allergies Reviewed: Yes Beta Blockers on Current Med List: No Anesthesia Results - Labs Laboratory Tests 02/01/18 02/09/18 02/09/18 11:15 19:23 19:23 WBC 9.6 Hgb 15.6 Hct 43.4 Plt Count 322 PT 13.6 H INR 1.2 APTT 37.0 H Sodium 136 Potassium 3.9 BUN 21 H Creatinine 0.66 L - Imaging EKG: report reviewed (02/09/2018 Sinus rhythm LVH by voltage Borderline prolonged QT interval) Anesthesia Exam Vital Signs/O2 Sat, Most Current Temp Pulse Resp BP Pulse Ox 98.5 F 96 20 163/96 96 04/18/18 08:20 04/18/18 08:20 04/18/18 08:20 04/18/18 08:20 04/18/18 08:20 Height: 6'1''/1.85m Weight: 157 lbs/71 kg NPO (# of Hours): 8 Pain Scale Used: Unable to assess - HEENT Pupil (Motor): Other (unable to assess as patient is unresponsive) - BENEFITS SPECIALIST LOC: Unable to assess (patient was sedated on the floor with haldol, ativan and benadryl at 1445) - Cardiac Rhythm: Regular Murmur: None - Pulmonary Breath Sounds: bilateral Clear Respiratory Effort: Symmetrical Anesthesia Assess/Plan ASA Score: 3 Level of consciousness: Asleep with no response (Patient was sedated on the floor with haldol, ativan and benadryl at 1445. Patient is unresponsive. Verbal consent obtained from mother, Marii Worrell [phone].) Anesthetic Plan: General Monitoring Plan: Standard Monitors Recovery Plan: PACU
--- NOTE | 2018-04-18 14:26 | Event Note ---
Date of Encounter: 04/18/18 Time of Encounter: 14:20 STATEMENT OF BELIEF THE PATIENT IS VERY AGITATED. HE DOES NOT UNDERSTAND, HOW SICK HE IS; HE MAY LOSE HIS TAMERA DUE TO LACERATED TENDONS OR DUE TO INFECTION. SEE NOTE FROM PSYCHIATRY. WE TRIED IM ATIVAN AND PO OXYCODONE WITH LIMITED RESULTS. IN THIS SITUATION, WE HAVE TO USE RESTRAINTS FOR THE PAIENT'S SAFETY. HE IS NOT ALLOWED TO LEAVE HIS ROOM.
[2018-04-18] MEDS ORDERED: Haloperidol Lactate 5 MG/ML VIAL IM ONE (14:39)
[2018-04-18] MEDS ORDERED: Haloperidol Lactate 5 MG/ML VIAL ONE (14:39)
[2018-04-18] MEDS ORDERED: *HR* LORazepam 1 MG TABLET PO PRN (14:45)
[2018-04-18] MEDS ORDERED: KETAMINE HCL 50 MG/ML SYRINGE IV ONE (15:14)
[2018-04-18] MEDS ORDERED: Ondansetron 4 MG/2 ML VIAL ONE (15:15)
[2018-04-18] MEDS ORDERED: Lidocaine -MPF 2% 2 ML VIAL ONE (15:15)
[2018-04-18] MEDS ORDERED: *HR* Succinylcholine 200 MG/10 ML VIAL IVP ONE (15:15)
[2018-04-18] MEDS ORDERED: Dexamethasone 4 MG/ML VIAL ONE (15:15)
[2018-04-18] MEDS ORDERED: Lidocaine -MPF 4% 5 ML AMPUL ONE (15:15)
[2018-04-18] MEDS ORDERED: *HR* Midazolam HCl 2 MG/2 ML VIAL ONE (15:18)
[2018-04-18] MEDS ORDERED: *HR* FentaNYL (PF) 100 MCG/2 ML VIAL ONE (15:18)
[2018-04-18] MEDS ORDERED: *HR* Propofol 200 MG/20 ML VIAL IVP ONE (15:19)
[2018-04-18] MEDS ORDERED: Naloxone 0.4 MG/ML INJ IVP PRN ×2 (16:03→19:11)
[2018-04-18] MEDS ORDERED: WATER FOR INJ IVP ONE (18:00)
[2018-04-18] MEDS ORDERED: CEFAZOLIN SODIUM IVP ONE (18:00)
[2018-04-18] MEDS ORDERED: *HR* LORazepam 2 MG/ML VIAL IM PRN (19:11)
[2018-04-18] MEDS: *HR* LORazepam 1 MG TABLET PO PRN (20:23)
--- NOTE | 2018-04-18 20:25 | Anesthesia Evaluation Post Op ---
Date of Encounter: 04/18/18 Time of Encounter: 18:38 - Discharge PostOp Status: Transfer Patient to floor (Patient's vital signs have been reviewed. Patient is stable postoperatively and has adequately recovered from anesthesia. Patient is determined to have stable airway patency and respiratory function including respiratory rate and oxygen saturation. Patient has a stable heart rate, blood pressure and adequate hydration. Patients mental status is acceptable. Patients temperature is appropriate. Pain and nausea are adequately controlled.)
--- NOTE | 2018-04-18 22:18 | Internal Med History&Physical ---
Date of Encounter: 04/18/18 Time of Encounter: 19:00 Internal Medicine - H&P: HPI Chief complaint: LEFT HAND CUT/AGITATION Admitted From: Home Plans for Post Hospital Care: Home History of present illness: The patient is a 28-year-old male. He came to the emergency room intoxicated with methamphetamine. He showed as a cat located on the posterior portion of his left hand. He cannot tell us how it happened. He has been already evaluated by orthopedic surgery. The patient agreed for extensor tendon laceration of left hand repair. He is very agitated. He is threatening to leave hospital. At some point he pulled out his IV. He does not seem to have any recognition of his medical problems. I told him that he may not be able to use his left hand at all, if he does not get the surgical repair. He may also developed a severe infection in that area. He is very much preoccupied in getting cigarettes and methamphetamine. PAST MEDICAL HX: He tells me that he has been using methamphetamine for at least several years. PAST FAMILY HX: He does not remember any medical problems for his all close family members. PAST SOCIAL HX: He has been long-term tobacco user. He has been using methamphetamine for at least several years. REVIEW OF SYSTEMS: All 14 organ systems were reviewed by me with the patient. Positive and pertinent negative findings are listed above. The rest of organ systems is negative. PHYSICAL EXAM: Skin: Free of rash and discoloration. There is a deep cat located at the posterior aspect of his left handsee description by the orthopedic surgeon. Musculoskeletal: See evaluation by the orthopedic surgery. Eyes: Sclera is white. There is no discharge from eyes. ENMT: Oral/pharyngeal mucosa is normal in appearance. There is no discharge from nose or ears. Respiratory: Normal breath sounds with no crackles and wheezes bilaterally. CV: Heart is regular with no gallop or murmur. GI: Abdomen is flat and soft with no palpable mass or visceromegaly. : There is no tenderness in patient's flanks bilaterally. Neuro exam: He has good strength in upper and lower extremities. He has normal eye movements. Psychiatric: He has normal affect. His thought process is appropriate to the situation. ADDITIONAL DATA: The patient likely did not agree for additional testing. I cannot see any lab results for him. A/P: Extensor tendon laceration of left hand with open wound. The patient agreed for surgical repair of that problem. The surgery is scheduled for today afternoon. Methamphetamine abuse/substance abuse. He was initially intoxicated, when being in the emergency room. Currently, he shows withdrawal symptoms/signs. This is mostly agitation and lacking of rational thinking. We requested stat evaluation by psychiatry. I wrote a statement of beliefsee my events noted. I will medicate him with IV/IM Ativan and sublingual oxycodone (for pain control). He will be getting when necessary intramuscular Haldol and intramuscular Benadryl. Will be able to use restraints and security guards in the next 24 hours, if necessary. Past Med Surg Social Fam HX - Past Medical History Medical history: no medical history Additional medical history: IV drug user, marijuana use, smoker Psychiatric history: other (methamphetamine use D/O) - Past Surgical History Surgical History: no surgical history - Social History Smoking Status: Current every day smoker Smokeless Tobacco Status: No Alcohol use: none Drug use: marijuana, methamphetamine, IV Drug Use Internal Medicine - H&P: Meds FLUoxetine HCl [Prozac] 20 mg PO DAILY 04/18/18 [History] Loxapine Succinate [Loxapine] 10 mg PO HS 04/18/18 [History] risperiDONE [Risperidone] 2 mg PO BID 04/18/18 [History] traZODone [TraZODone] 50 mg PO HS PRN 04/18/18 [History] Allergy/AdvReac Type Severity Reaction Status Date / Time No Known Allergies Allergy Verified 08/24/17 15:54 - Constitutional Vitals: Temp Pulse Resp BP Pulse Ox 98.1 F 84 16 130/85 95 04/18/18 19:45 04/18/18 19:45 04/18/18 19:45 04/18/18 19:45 04/18/18 19:45 General appearance: Present: A&O X 2 Exam: xx Internal Med - H&P Results - Impressions ITS Impressions Hand X-Ray 04/18/18 05:50 IMPRESSION: No definite fracture or radiopaque foreign body. D/ / Mane Cutler MD / Mane Cutler MD Interpreting Provider: Mane Cutler MD - Assessment and plan (1) Extensor tendon laceration of left hand with open wound Current Visit: Yes Status: Acute Qualifiers: Encounter type: initial encounter Qualified Code(s): S66.822A - Laceration of other specified muscles, fascia and tendons at wrist and hand level, left hand, initial encounter; S61.402A - Unspecified open wound of left hand, initial encounter (2) Methamphetamine abuse Current Visit: Yes Status: Chronic - Time Spent With Patient Total time spent is greater than 50% in coordination of care (as documented) at patient's floor/unit and/or counseling patient: - VTE Reasons for not Prescribing Prophylaxis: Treatment not Indicated - Low risk for VTE Deep Vein Thrombosis/Pulmonary Embolism Present on Admission: No
[2018-04-19 05:10] VITALS: BP 110/72
[2018-04-19] MEDS: *HR* LORazepam 1 MG TABLET PO PRN ×2 (07:53→14:01)
[2018-04-19 09:27] LABS: Basophils % 0.1 %; Hematocrit 40.4 % (37.5-50.1); Immature Granulocytes % 0.5 % (0-4); Lymphocytes # 1.6 K/mcL (0.6-4.6); Lymphocytes % 10.9 %; Mean Corpuscular HGB Conc 34.7 g/dL (31.6-35.5); Mean Corpuscular Hemoglobin 32.8 pg (28.0-33.3); Mean Corpuscular Volume 94.6 fL (83.0-100.0); Mean Platelet Volume 10.3 fL (9.4-12.4); Monocytes # 0.7 K/mcL (0.0-1.3); Monocytes % 4.9 %; Neutrophils # 12.5 K/mcL (1.6-8.9); Platelet Count 342 K/mcL (140-400); Red Blood Count 4.27 M/mcL (4.19-5.50); Red Cell Distribution Width 13.2 % (11.5-14.5); Segmented Neutrophils % 83.6 %
[2018-04-19 09:40] LABS: INR 1.1; Prothrombin Time 12.9 Seconds (9.4-12.1)
[2018-04-19 09:45] LABS: BUN/Creatinine Ratio 13 (6-26); Blood Urea Nitrogen 9 mg/dL (6-20); Calcium 9.3 mg/dL (8.6-10.3); Carbon Dioxide 28 mEq/L (23-29); Chloride 102 mEq/L (98-107); Glucose 133 mg/dL (70-105); Osmolality,Calculated 281 (280-300); Potassium 3.8 mEq/L (3.5-5.1); Sodium 135 mEq/L (136-145); eGFR For Non-African Americans > 60 (> 60)
--- NOTE | 2018-04-19 11:57 | Operative Note ---
Date of procedure: 04/18/18 Pre-op diagnosis: Left hand laceration with extensor tendon lacerations of IF & LF Post-op diagnosis: same (Left hand dorsal laceration with a laceration to the long finger extensor digitorum communis tendon, and extensor indices proprius tendon) Procedure: Left hand/wrist repair of extensor tendons in zone 7 - long finger extensor digitorum communis tendon and extensor indicius proprius tendon Anesthesia: GETA Surgeon: Dalton Farfan Was there an assistant golf professional present: Yes Power Driven Brush Maker: Mayte Hua Estimated blood loss (cc): 10 Tourniquet Time (Minutes): 43 Specimen: 0 Condition: stable Disposition: PACU Procedure in Detail: The patient received IV antibiotics in the holding area, was brought into the operating room and was placed on the OR table in supine position with the affected upper extremity on a hand table. A sign in was performed. The patient underwent general anesthesia. A tourniquet was placed on the left arm close the axilla. The left upper extremity was then prepped and draped in usual sterile fashion. A timeout was performed. The patient had a 4 cm oblique Incision Extending from the ulnar side of the wrist to the distal radial side of the dorsum of the left hand. The sutures removed and the wound was copiously irrigated with normal saline. Due to the patient's medical condition, the anesthesia was kept light. He was injected with 7 mL of 2% lidocaine around the incision site. The left upper extremity was then elevated, exsanguinated with an Min wrap and the tourniquet raised to a pressure 250 mmHg. The skin flaps were elevated, subcutaneous tissue was bluntly dissected, exposing the extensor mechanism. It was seen with the extensor digitorum communis tendon to the long finger was lacerated just distal to the extensor retinaculum of the wrist. Also the extensor indices proprius tendon was cut lacerated at this level. The EDC to the index finger, ring and small fingers were noted to be intact. The tendons had retracted back under the extensor reti naculum. The incision extended 1 cm more proximal. Attempts using a tendon retriever was unsuccessful. A 4 cm longitudinal incision was made at the proximal aspect of the wrist over the fourth extensor compartment. The fascia was bluntly dissected through up to the level of the proximal edge of the extensor retinaculum. The retracted long finger EDC tendon was identified. The EIP muscle belly was identified. The laceration was at the musculotendinous junction. The tendon passer was then used to pull the EDC tendon through distally. The tendon ends were freshened up with a scalpel. A repair was performed using 0 FiberWire. A Vegas suture was placed, followed by figure of 8 sutures. There was noted to be significant tension on the EDC tendon during the repair. Since the EIP cut was of the muscle tendinous junction, I decided to place a [place] suture on the proximal side, giving 4 passes with the 4-0 FiberWire. The FiberWire was then pulled under the extensor retinaculum, pulling muscle belly/tendon through. It was then repaired to the tendon distally with a Vegas pattern, reinforced with [id number] sutures. The tourniquet was then deflated. The wounds were copiously irrigated with normal saline. Hemostasis obtained with bipolar cautery. Skin incisions were then closed with 5-0 nylon mattress and simple sutures. The patient was injected with 10 mL of 0.5% Marcaine. Sterile dressings applied. The patient was placed into an extension splint. He was then extubated and taken to the recovery room in stable condition. The patient will be seen at postoperative week 1, for dressing changes, place into an MP extension cast, ending at the long finger PIP joint, allowing partial PIP flexion. The wrist will be at 20 degrees extension, and full extension of the finger MP joints.
--- NOTE | 2018-04-19 12:24 | Internal Med Progress Note ---
Hospitalist Progress Note - Encounter Date of Encounter: 04/19/18 Time of Encounter: 09:45 - Subjective Interval History: The patient is a 28-year-old male. He came to the emergency room intoxicated with methamphetamine and left hand laceration with extensor tendon injury. Patient stated that he does not remember how he cut his hand or what he was doi ng at the time,nable to move his fingers denies numbness and tingling. We admitted him for orthopedic evaluation - Exam Vitals: Temp Pulse Resp BP Pulse Ox 98.4 F 93 18 110/72 96 04/18/18 21:45 04/19/18 03:59 04/19/18 03:59 04/19/18 03:59 04/19/18 07:45 Exam: xxGen: Alert, awake , Oriented to time,place and person, but sleepy and doesnot like to talk. Chest: Diminished BS b/l, No crackles, No rales, No wheezing Heart: S1S2+ RRR No Murmurs Abd: Soft, NT, BS + No organomegaly Ext: No edema, pulses are palpable, no tenderness, Left hand was on splint after repair of extensor tendon. Neuro: No focal neuro deficits Psych: Normal mood Skin: No rash - Assessment and Plan (1) Extensor tendon laceration of left hand with open wound Current Visit: Yes Status: Acute (2) Substance abuse Current Visit: No Status: Acute - Time Spent with Patient Total time spent is greater than 50% in coordination of care (as documented) at patient's floor/unit and/or counseling patient: Internal Medicine: Result - Labs CBC & Chem 7: 04/19/18 09:06 04/19/18 09:06 Labs: Short CBC 04/19/18 Range/Units 09:06 WBC 14.9 H (4.3-11.1) K/mcL Hgb 14.0 (12.9-16.9) g/dL Hct 40.4 (37.5-50.1) % Plt Count 342 (140-400) K/mcL Neutrophils # 12.5 H (1.6-8.9) K/mcL BMP 04/19/18 09:06 Sodium 135 L Potassium 3.8 Chloride 102 Carbon Dioxide 28 BUN 9 Creatinine 0.67 L Glucose 133 H Calcium 9.3 - ABG Interpretation ABG results: PT/INR, D-dimer PT 12.9 Seconds (9.4-12.1) H 04/19/18 09:06 - VTE Reasons for not Prescribing Prophylaxis: Treatment not Indicated - Low risk for VTE Deep Vein Thrombosis/Pulmonary Embolism Present on Admission: No Consult Discharge Plan - Plan Additional Instructions: Pt currently lacks capacity to make decisions. PT does not meet inpt psychiatric admssion criteria at this time. will continue to follow loosely Referrals: NONE,PCP [Primary Care Provider] -
--- NOTE | 2018-04-19 12:29 | Orthopedics Progress Note ---
Date of Encounter: 04/19/18 Time of Encounter: 12:00 - Assessment and Plan (1) Extensor tendon laceration of left hand with open wound Current Visit: Yes Status: Acute POD#1 s/p left hand process owner tendon repair 04/18/[address]. No finger or wrist motion. Elevate and ice hand. Pain control per hospitalist. No lifting, pulling or pushing. Follow up with Mayte Hua PA-C in [facility] office on 04/24/18 at 9:00am. Qualifiers: Qualified Code(s): S66.822A - Laceration of other specified muscles, fascia and tendons at wrist and hand level, left hand, initial encounter; S61.402A - Unspecified open wound of left hand, initial encounter Subjective Principal diagnosis: POD#1 s/p left hand extensor tendon repair 04/18/18 Interval history: Spoke with nurse, Patient currently heavily medicated due to aggravation and aggression. No events overnight. Sitter with patient on exam. Splint intact. Objective Vital signs: Vital Signs Temp Pulse Resp BP Pulse Ox 04/19/18 07:45 96 04/19/18 03:59 93 18 110/72 96 04/18/18 23:01 81 120/83 04/18/18 21:45 98.4 F 16 132/84 96 04/18/18 20:45 98.3 F 78 16 126/76 96 04/18/18 19:45 98.1 F 84 16 130/85 95 04/18/18 19:15 98.0 F 82 16 129/82 96 04/18/18 19:00 98.0 F 82 16 121/79 97 04/18/18 18:54 98.0 F 84 15 121/79 96 04/18/18 18:38 99.1 F 84 16 121/80 94 04/18/18 18:28 84 18 122/87 100 04/18/18 18:18 84 16 119/81 100 04/18/18 18:08 99.4 F 86 16 117/78 100 Intake and Output 04/18/18 04/19/18 04/19/18 23:59 07:59 15:59 Intake Total 200 / 200 Output Total 460 / 460 Balance -460 / -460 200 / 200 Intake: IV Fluids 100 / 100 Ancef 2,000 MG In 0.9 % Sodium 100 / 100 Chloride 100 ML @ 200 mls/hr IVPB Q8HR [facility] Rx#:[id number] Oral 100 / 100 Output: Urine 450 / 450 Estimated Blood Loss Incision: clean and dry (postop spint/dressings intact, brisk cap refill) - Labs CBC & BMP: 04/19/18 09:06 04/19/18 09:06 Labs: Abnormal lab results WBC 14.9 K/mcL (4.3-11.1) H 04/19/18 09:06 Neutrophils # 12.5 K/mcL (1.6-8.9) H 04/19/18 09:06 PT 12.9 Seconds (9.4-12.1) H 04/19/18 09:06 Sodium 135 mEq/L (136-145) L 04/19/18 09:06 Creatinine 0.67 mg/dL (0.70-1.30) L 04/19/18 09:06 Glucose 133 mg/dL (70-105) H 04/19/18 09:06 - VTE Reasons for not Prescribing Prophylaxis: Treatment not Indicated - Low risk for VTE Deep Vein Thrombosis/Pulmonary Embolism Present on Admission: No Consult Discharge Plan - Plan Additional Instructions: Pt currently lacks capacity to make decisions. PT does not meet inpt psychiatric admssion criteria at this time. will continue to follow loosely Referrals: NONE,PCP [Primary Care Provider] -
--- NOTE | 2018-04-19 14:22 | Consult Note ---
Date of Encounter: 04/19/18 Time of Encounter: 13:30 Assessment & Recommendation (1) Acute psychosis Current visit: No Status: Acute (2) Substance abuse Current visit: No Status: Acute (3) Substance-induced psychotic disorder Current visit: No Status: Acute (4) Borderline intellectual functioning Current visit: No Status: Acute (5) Intellectual functioning disability Current visit: No Status: Acute History of Present Illness Patient: known to practice within the last 3 years Requesting Physician: Arely Oneal Reason for consult: Methamphetamine use D/O and agitation History of present illness: Mr. Villasenor is a 28 year old male who presents for methamphetamine use D/O. Pt Noted he was doing "alright today." Pt stated that his appetite was "fine....." Pt stated that he slept "good." last night. Pt noted his appetite is "okay." Pt rated his depression a "0," on a scale of zero to ten with ten being the worst and zero being none. Pt rated his anxiety a "0," on the same scale. Pt denied any current thoughts to harm himself or anyone else. Pt noted he currently feels safe and comfortable on the unit. Pt denied any auditory or visual hallucinations. Pt continues to show aggression towards staff, majority is personality and DD driven. Pt noted significant methamphetamine use daily. Pt additionally has hx of developmental Delay. Pt shows improvement would consider D/C with coordination with family. 1. Interval History. 2. Review current labs 3. Continue current medications 4. Supportive Therapy Provided 5. Pt had an opportunity to ask questions and address concerns 6. Pt encouraged to continue therapy group or individual. 7. Pt was in agreement with treatment plan. 8. The risks benefits and side effects of medications were discussed with the patient, including alternatives and no treatment. 9. Recommend haloperidol 5 mg PO or IM if refuse and lorazepam 2 mg PO or IM if refuse and benadryl 50 mg PO or IM if refuse for calm Q6H prn. 10. Coordinate for appropriate D/C planning with family. CC: Arely Oneal Past Med Surg Social Fam HX - Past Medical History Medical history: no medical history - Past Psychiatric History Psychiatric history: Reports: other (developmental delay, methamphetamine use D/O) Family psychiatric history: Yes Family History of Suicide: Unknown - Past Surgical History Surgical History: no surgical history - Social History Smoking Status: Current every day smoker Smokeless Tobacco Status: No Alcohol use: none Drug use: marijuana, methamphetamine, IV Drug Use Medications & Allergies FLUoxetine HCl [Prozac] 20 mg PO DAILY 04/18/18 [History] Loxapine Succinate [Loxapine] 10 mg PO HS 04/18/18 [History] risperiDONE [Risperidone] 2 mg PO BID 04/18/18 [History] traZODone [TraZODone] 50 mg PO HS PRN 04/18/18 [History] Allergy/AdvReac Type Severity Reaction Status Date / Time No Known Allergies Allergy Verified 08/24/17 15:54 Review of Systems Neurological: Reports: confusion, other (Develmental Delay). Denies: headache, weakness, numbness, memory loss Psychiatric: Reports: confusion, mood swings Psychiatry Exam - Constitutional Vitals: Temp Pulse Resp BP Pulse Ox 98.4 F 93 18 110/72 96 04/18/18 21:45 04/19/18 03:59 04/19/18 03:59 04/19/18 03:59 04/19/18 07:45 General appearance: age & developmentally appropriate, well-groomed, well- nourished - Musculoskeletal Gait: normal Station: relaxed Strength & Tone: normal for patient - Psychiatric Patient Orientation: Yes Person, Yes Place Level of alertness: Alert Behavior: calm, agitated, aggressive Psychomotor activity: Normal Eye Contact: Maintains Eye Contact Mood Description: Angry, Anxious Affect description: congruent with mood, anxious Speech Volume: Loud Speech pattern: normal rate, normal rhythm, normal tone, garbled (pt is developmentally delayed with limited articulation), stuttering Language & Vocabulary: consistent with education, limited Thought Process: Linear, Goal Oriented, [place] Thought Content: No Suicidal ideation, No Homicidal ideation, No Overt delusions Perceptual Disturbances: No Auditory hallucinations, No Visual hallucinations Attention Span Ability: Capable of Focused Attention Memory Description: Grossly Intact, Remote Impaired Patient Reliability: Reliable Historian Fund of knowledge: Yes abstraction ability, Yes below average, Yes aware of current events Intelligence Estimate: Below Average Judgment: Limited Insight: Partial Results - Labs Labs: Laboratory Last Values WBC 14.9 K/mcL (4.3-11.1) H 04/19/18 09:06 RBC 4.27 M/mcL (4.19-5.50) 04/19/18 09:06 Hgb 14.0 g/dL (12.9-16.9) 04/19/18 09:06 Hct 40.4 % (37.5-50.1) 04/19/18 09:06 MCV 94.6 fL (83.0-100.0) 04/19/18 09:06 MCH 32.8 pg (28.0-33.3) 04/19/18 09:06 MCHC 34.7 g/dL (31.6-35.5) 04/19/18 09:06 RDW 13.2 % (11.5-14.5) 04/19/18 09:06 Plt Count 342 K/mcL (140-400) 04/19/18 09:06 MPV 10.3 fL (9.4-12.4) 04/19/18 09:06 Immature Gran % 0.5 % (0-4) 04/19/18 09:06 Seg Neutrophils % 83.6 % 04/19/18 09:06 Lymphocytes % 10.9 % 04/19/18 09:06 Monocytes % 4.9 % 04/19/18 09:06 Eosinophils % 0.0 % 04/19/18 09:06 Basophils % 0.1 % 04/19/18 09:06 Neutrophils # 12.5 K/mcL (1.6-8.9) H 04/19/18 09:06 Lymphocytes # 1.6 K/mcL (0.6-4.6) 04/19/18 09:06 Monocytes # 0.7 K/mcL (0.0-1.3) 04/19/18 09:06 Eosinophils # 0.0 K/mcL (0.0-0.6) 04/19/18 09:06 Basophils # 0.0 K/mcL (0.0-0.2) 04/19/18 09:06 PT 12.9 Seconds (9.4-12.1) H 04/19/18 09:06 INR 1.1 04/19/18 09:06 Sodium 135 mEq/L (136-145) L 04/19/18 09:06 Potassium 3.8 mEq/L (3.5-5.1) 04/19/18 09:06 Chloride 102 mEq/L (98-107) 04/19/18 09:06 Carbon Dioxide 28 mEq/L (23-29) 04/19/18 09:06 BUN 9 mg/dL (6-20) 04/19/18 09:06 Creatinine 0.67 mg/dL (0.70-1.30) L 04/19/18 09:06 Est GFR ( Amer) > 60 (> 60) 04/19/18 09:06 Est GFR (Non-Af Amer) > 60 (> 60) 04/19/18 09:06 BUN/Creatinine Ratio 13 (6-26) 04/19/18 09:06 Glucose 133 mg/dL (70-105) H 04/19/18 09:06 Calculated Osmolality 281 (280-300) 04/19/18 09:06 Calcium 9.3 mg/dL (8.6-10.3) 04/19/18 09:06 Consult Discharge Plan - Plan Additional Instructions: 1. Recommend haloperidol 5 mg PO or IM if refuse and lorazepam 2 mg PO or IM if refuse and benadryl 50 mg PO or IM if refuse for calm Q6H prn. 2. Coordinate for appropriate D/C planning once medically stable with family. 3. PT does not meet inpt psychiatric admssion criteria at this time. 4. will continue to follow loosely Referrals: NONE,PCP [Primary Care Provider] -
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
== END 2018-04-19 15:04 | disposition other institution (70) | DRG 316 ==
LOC: 3NENU 05:38 → EMEROOARM 05:38 → 3NENU 08:13 → SUATTDRO 16:03
PROVIDERS: ADMIT Internal Medicine; ATTEND Internal Medicine

== ENCOUNTER 2020-06-17 02:49 | Observation (INO) ==
[2020-06-17 03:47] LABS: Basophils % 0.2 %; Hematocrit 41.1 % (37.5-50.1); Hemoglobin 14.1 g/dL (12.9-16.9); Immature Granulocytes % 0.5 % (0-4); Lymphocytes # 1.6 K/mcL (0.6-4.6); Lymphocytes % 12.1 %; Mean Corpuscular HGB Conc 34.3 g/dL (31.6-35.5); Mean Corpuscular Hemoglobin 31.5 pg (28.0-33.3); Mean Corpuscular Volume 91.7 fL (83.0-100.0); Mean Platelet Volume 10.1 fL (9.4-12.4); Monocytes # 1.1 K/mcL (0.0-1.3); Monocytes % 7.9 %; Neutrophils # 10.6 K/mcL (1.6-8.9); Platelet Count 269 K/mcL (140-400); Red Blood Count 4.48 M/mcL (4.19-5.50); Red Cell Distribution Width 12.5 % (11.5-14.5); Segmented Neutrophils % 79.3 %; White Blood Count 13.3 K/mcL (4.3-11.1)
[2020-06-17 04:25] LABS: Acetaminophen < 10 mcg/mL (10-20); Alanine Aminotransferase 32 Units/L (7-52); Albumin 4.7 g/dL (3.5-5.7); Albumin/Globulin Ratio 1.7 (1.1-2.2); Alkaline Phosphatase 67 Units/L (34-104); Aspartate Amino Transferase 101 Units/L (13-39); BUN/Creatinine Ratio 21 (6-26); Bilirubin,Direct 0.1 mg/dL (0.0-0.2); Bilirubin,Indirect 0.4 mg/dL (0.0-1.0); Bilirubin,Total 0.5 mg/dL (0.3-1.0); Blood Urea Nitrogen 13 mg/dL (6-20); Calcium 9.6 mg/dL (8.6-10.3); Carbon Dioxide 25 mEq/L (23-29); Chloride 100 mEq/L (98-107); Creatine Kinase 6214 Units/L (30-223); Ethanol < 10 mg/dL (Less than 10); Globulin 2.7 g/dL (2.4-3.5); Glucose 90 mg/dL (70-105); Osmolality,Calculated 282 (280-300); Potassium 3.7 mEq/L (3.5-5.1); Salicylate < 2.5 mg/dL (15.0-30.0); Sodium 136 mEq/L (136-145); Total Protein 7.4 g/dL (6.4-8.9); eGFR For African Americans > 60 (> 60); eGFR For Non-African Americans > 60 (> 60)
[2020-06-17 04:25] LABS: Amphetamine Screen,Urine Positive ng/mL (Cutoff=1000); Barbiturate Screen,Urine Negative ng/mL (Cutoff=200); Benzodiazepines Screen,Urine Negative ng/mL (Cutoff=200); Cannabinoid Screen,Urine Positive ng/mL (Cutoff = 50); Cocaine Screen,Urine Negative ng/mL (Cutoff= 300); Opiate Screen,Urine Negative ng/mL (Cutoff=300); Phencyclidine Screen,Urine Negative ng/mL (Cutoff=25)
[2020-06-17 04:29] LABS: Bacteria,Urine Few per hpf (None-Few); Bilirubin,Urine Negative (Negative); Blood,Urine Large (Negative); Clarity,Urine Clear (Clear); Color,Urine Light-Yellow (Yellow); Glucose,Urine (UA) Normal (Normal); Hyaline Casts,Urine Moderate per lpf (None Seen); Ketones,Urine Trace mg/dL (Negative); Leukocyte Esterase,Urine Negative (Negative); Mucus,Urine Few per lpf (None-Few); Nitrite,Urine Negative (Negative); PH,Urine 6.5 pH Units (5.0-8.0); Protein,Urine 30 mg/dL (Neg-Trace); RBC,Urine 0-3 per hpf (0-3); Sperm,Urine Present (None Seen); Urobilinogen,Urine Normal (Normal); WBC,Urine 0-3 per hpf (0-3)
[2020-06-17] MEDS ORDERED: 0.9 % Sodium Chloride 1,000 ML IVC ONE ×3 (04:29→06:24)
[2020-06-17] MEDS ORDERED: *HR* LORazepam 2 MG/ML VIAL IM ONE (04:50)
[2020-06-17] MEDS ORDERED: *HR* LORazepam 2 MG/ML VIAL IVP ONE (04:52)
[2020-06-17] MEDS ORDERED: Ondansetron 4 MG/2 ML VIAL IVP PRN (06:20)
[2020-06-17] MEDS ORDERED: Naloxone 0.4 MG/ML INJ IVP PRN (06:20)
[2020-06-17] MEDS ORDERED: Acetaminophen 325 MG TABLET PO PRN (06:20)
[2020-06-17 06:38] VITALS: BP 134/89
[2020-06-17] MEDS ORDERED: Nicotine 21 MG PATCH.TD24 TD PRN (06:43)
[2020-06-17] MEDS ORDERED: 0.9 % Sodium Chloride 1,000 ML IVC SCH (07:30)
== END 2020-06-17 11:30 | disposition left against medical advice (07) ==
LOC: EMEROOARM 02:49 → 3BNU 02:49 → SUATTDRO 04:54 → 2NENU 05:22
PROVIDERS: ADMIT Internal Medicine; ATTEND Internal Medicine